=== PATIENT | male | born 1945 | race Caucasian/White ===

== ENCOUNTER 2016-07-10 15:32 | Inpatient (IN) | payer OTHER, MEDICARE, MEDICAID ==
[~2016-07-10] VITALS: Ht 182.9 cm; Wt 128.8 kg
[2016-07-10 15:35] VITALS: BP 123/66; PULSE 107; RESP 22; TEMP 98.7; O2SAT 92
--- NOTE | 2016-07-10 15:35 | NUR ---
Pt BIB BLS and triaged in hallway. Pt c/o generalized weakness x 1 day. Denies falling, denies head trauma or LOC. No focal neurodeficits noted. Pt report given to SHELLY Gallegos and Dr. Crespo. Addendum: 07/10/16 at 1632 by ALESSIA Pt arrives with O2 at @ 2LPM/NC per ambulance r/t SPO2 in low 90's. No respiratory distress noted. BBS clear, even and non-labored.
--- NOTE | 2016-07-10 16:00 | NUR ---
Pt placed to ER bed 05.
--- NOTE | 2016-07-10 16:05 | NUR ---
Pt brought by ambulance, A&Ox4, pt c/o generalized weakness and SOB, skin pink and diaphoretic, cap refill <3, VSS, cap refill <3, pt denies pain at this time.able to follows commands.
--- NOTE | 2016-07-10 16:05 | NUR ---
Dr Crespo at bedside examining patient
[2016-07-10] MEDS ORDERED: PIPERACILLIN/TAZO 3.38 GM in D5W 50 ML IV ONE (16:15)
[2016-07-10] MEDS ORDERED: NS 1000 ML BAG IV ONE (16:15)
[2016-07-10] MEDS ORDERED: ACETAMINOPHEN 325 MG TABLET PO ONE (16:30)
[2016-07-10 16:31] LABS: HEMATOCRIT 45.7 % (36-54); MEAN CORPUSCULAR HEMOGLOBIN 29 pg (27-31); MEAN CORPUSCULAR HGB CONC 35 % (32-36); MEAN CORPUSCULAR VOLUME 83 fL (79.0-98.0); PLATELET COUNT (AUTO) 178 K/uL (130-430); RED BLOOD CELL COUNT(AUTO) 5.53 MIL/uL (4.2-6.2); RED CELL DISTRIBUTION WIDTH 13.5 % (9.0-15.0); WHITE BLOOD COUNT (AUTO) 24.8 K/uL (4.8-10.8)
[2016-07-10] MEDS ORDERED: PIPERACILLIN/TAZOBACTAM 3.375 GM/VIAL (ZOSYN) IV ONE ×2 (16:32→23:22)
[2016-07-10 16:35] LABS: ABG TOTAL HEMOGLOBIN 16.5 G/dL (12.0-18.0); BLOOD GAS BASE EXCESS -2.1 mmol/L (-3.0-3.0); BLOOD GAS COHb% 0.4 % (0.5-1.5); BLOOD GAS HHB 7.1 % (0.0-6.0); BLOOD GAS PH 7.492 (7.350-7.450); BLOOD O2Hb% 92.3 % (94.0-97.0)
[2016-07-10 16:44] LABS: ANION GAP 9 (5-15); CALCIUM 8.9 mg/dL (8.4-11.0); CHLORIDE 104 mmol/L (98-107); GLUCOSE 135 mg/dL (70-99); POTASSIUM 3.9 mmol/L (3.5-5.1); SODIUM SERUM 136 mmol/L (136-145); UREA NITROGEN, BLOOD 34 mg/dL (8-21)
[2016-07-10 16:48] LABS: ALANINE AMINOTRANSFERASE 32 U/L (12-78); ALBUMIN 3.6 g/dL (3.4-4.8); ASPARTATE AMINOTRANSFERASE 20 U/L (10-37); TOTAL BILIRUBIN 2.3 mg/dL (0.0-1.0); TOTAL PROTEIN, SERUM 6.6 g/dL (6.4-8.3)
[2016-07-10 16:57] LABS: INR 1.2 (0.80-1.20); PROTHROMBIN TIME 12.6 SECS (9.5-12.5)
[2016-07-10 17:13] LABS: BAND % (MANUAL) 7 % (0-6); BASOPHILS % (MANUAL) 0 % (0-2); EOSINOPHILS % (MANUAL) 0 % (0-7); LYMPHOCYTES % (MANUAL) 20 % (20-46); MONOCYTES % (MANUAL) 4 % (0-11)
[2016-07-10] MEDS ORDERED: NACL 0.9% 1,000 ML IV ONE ×2 (17:15)
[2016-07-10 18:36] LABS: BILIRUBIN,URINE NEGATIVE (NEGATIVE); BLOOD, URINE NEGATIVE (NEGATIVE); CLARITY/URINE CLEAR (CLEAR); COLOR,URINE YELLOW (YELLOW); GLUCOSE,URINE NEGATIVE (NEGATIVE); KETONES,URINE TRACE (NEGATIVE); LEUKOCYTE ESTERASE ,URINE TRACE (NEGATIVE); NITRITE, URINE NEGATIVE (NEGATIVE); PROTEIN URINE TRACE (NEGATIVE); UROBILINOGEN,URINE 0.2 (0.2-1.0)
[2016-07-10 18:51] LABS: BACTERIA,URINE RARE /HPF (None Seen); RBC,URINE 0-3 /HPF (0-3)
--- NOTE | 2016-07-10 19:33 | NUR ---
Pt A&Ox4, stable, follows commands, diaphoretic, VSS.
--- NOTE | 2016-07-10 19:35 | NUR ---
Pt states he does not take prescribed medications at home , per pt only takes vitamins.
[2016-07-10] MEDS ORDERED: ACETAMINOPHEN 500 MG TABLET PO PRN (19:45)
[2016-07-10] MEDS ORDERED: IPRATROPIUM/ALBUTEROL SULFATE 3 ML AMPUL.NEB INH PRN (19:45)
[2016-07-10] MEDS ORDERED: ONDANSETRON HCL 4 MG/2 ML VIAL IVP PRN (19:45)
[2016-07-10] MEDS ORDERED: VANCOMYCIN HCL 1,000 MG in NS 250 ML IV ONE (19:45)
[2016-07-10] MEDS ORDERED: D5/0.45 NS 1,000 ML IV ONE (19:45)
--- NOTE | 2016-07-10 20:10 | NUR ---
Patient will be admitted to care of Dr Beth . Admitted to Tele unit. Will go to room 100A . Belongings list completed. Summary report printed. Report given to admitting nurse
--- NOTE | 2016-07-10 20:17 | NUR ---
ADMISSION NOTE Received patient from ER via gurney. Patient admitted with diagnosis of sepsis/pneumonia/dehydration. Patient is awake, alert, oriented X4. Patient oriented to hospital room, call light, toileting, pain management and safety-teach back done. Patient informed that Yazmin BRAVO will be his nurse and that their room number is 100A. Personal belongings checked and Belongings List documented. Call light within reach.
[2016-07-10 20:20] VITALS: BP 108/62; PULSE 78; RESP 20; TEMP 98.1; O2SAT 93
--- NOTE | 2016-07-10 20:20 | NUR ---
INITIAL NOTE PT. RECEIVED AAOX4, VERY FATIGUED. NO S/S OF SOB OR DISTRESS AT THIS TIME. PT. DENIES ANY PAIN. VSS, SATING WELL ON 2L NC. SINUS RHYTHM ON THE MONITOR. IV ACCESS NOTED TO RAC, #20 AND LAC, #20. NO REDNESS OR SWELLING AT THE SITE. WILL START PT. ON IV FLUIDS ORDERED. LEFT LEG HAS SOME REDNESS AND +2 PITTING EDEMA. PT. ENCOURAGED TO STAY IN BED, AND CALL FOR ASSISTANCE IF NEEDED TO DUE WEAKNESS, VERBALIZES UNDERSTANDING. PLAN OF CARE DISCUSSED WITH THE PT. VERBALIZES UNDERSTANDING, HOWEVER HE IS DOZING IN AND OUT OF SLEEP. WILL NEED TO REINFORCE. SAFETY AND FALL PRECAUTIONS IN PLACE. CALL LIGHT IN REACH, BED ALARM ON.
--- NOTE | 2016-07-10 21:59 | NUR ---
ROUNDS DR. LOPEZ IN TO SEE THE PT. MADE AWARE OF PT. FATIGUE. HAS ORDERED FOLLOW UP ABG TO BE DONE IN AM ALONG WITH A URINE TOXICOLOGY SCREEN.
--- NOTE | 2016-07-10 22:00 | NUR ---
ROUNDS PT. RESTING IN BED WITH EYES CLOSED. CHEST RISE AND FALL NOTED. DIFFICULT TO AWAKEN. ON 2L NC. IV FLUIDS ARE INFUSING WELL. NO INFILTRATION NOTED. WILL CONTINUE TO MONITOR CLOSELY. SAFETY AND FALL PRECAUTIONS IN PLACE. CALL LIGHT IN REACH, BED ALARM ON.
[2016-07-10 22:15] VITALS: BP 108/62; PULSE 78
[2016-07-10] MEDS ORDERED: VANCOMYCIN HCL 1000 MG/VIAL IV ONE (23:22)
[2016-07-10] MEDS ORDERED: PANTOPRAZOLE SODIUM 40 MG/VIAL (PROTONIX) ONE (23:28)
[2016-07-10 23:52] VITALS: BP 122/65; PULSE 89; RESP 18; TEMP 98.2; O2SAT 95
[2016-07-11] MEDS: PANTOPRAZOLE SODIUM 40 MG/VIAL (PROTONIX) IVP SCH ×2 (00:06→08:41)
[2016-07-11] MEDS: PIPERACILLIN/TAZO 3.375/DEX-IS 50 ML IV SCH ×5 (00:09→23:34)
--- NOTE | 2016-07-11 00:30 | NUR ---
ROUNDS PT. RESTING IN BED. MORE TALKATIVE AND ALERT AT THIS TIME. IV ANTIBIOTICS INFUSING WELL WITH NO ADVERSE REACTIONS NOTED. 400 CC OF NEL URINE EMPTIED FROM URINAL. ASSISTED PT. TO A COMFORTABLE POSITION. PT. SON CALLED, WITH PT. VERBAL OKAY, LET SON KNOW HE WAS STABLE. TOLD SON I COULD NOT GIVE DETAILS OVER THE PHONE, VERBALIZED UNDERSTANDING. PT. ENCOURAGED TO CALL FOR ASSISTANCE AND NOT TO GET UP WITHOUT HELP. VERBALIZES UNDERSTANDING. WILL CONTINUE TO MONITOR. SAFETY AND FALL PRECAUTIONS IN PLACE. CALL LIGHT IN REACH, BED ALARM ON.
--- NOTE | 2016-07-11 00:34 | NUR ---
RADIOLOGY CALL SPOKE WITH RADIOLOGY, TO DO 1 VIEW X RAY TOMORROW DUE TO PT. WEAKNESS AND NOT ABLE TO STAND ON OWN.SAID HE WILL FOLLOW UP WITH MD LATER TOMORROW IF HE WOULD LIKE A 2 VIEW.
--- NOTE | 2016-07-11 02:00 | NUR ---
ROUNDS PT. RESTING IN BED WITH EYES CLOSED. CHEST RISE AND FALL NOTED. NO S/S OF SOB OR DISTRESS. NO FACIAL GRIMACING INDICATING PAIN. IV FLUIDS INFUSING WELL ORDERED. WILL CONTINUE TO MONITOR FOR ANY CHANGES. SAFETY AND FALL PRECAUTIONS IN PLACE. CALL LIGHT IN REACH.
[2016-07-11 03:50] VITALS: BP 110/63; PULSE 79; RESP 18; TEMP 98.6; O2SAT 96
--- NOTE | 2016-07-11 06:55 | NUR ---
closing note pt. resting in bed, no s/s of sob or distress noted. pt. denies pain at this time. iv fluids infusing well. all necessary needs were met. safety and fall precautions were maintained. will endorse care to am nurse. call light in reach.
[2016-07-11 07:28] LABS: ABG TOTAL HEMOGLOBIN 14.9 G/dL (12.0-18.0); BLOOD GAS BASE EXCESS -1.9 mmol/L (-3.0-3.0); BLOOD GAS HHB 4.2 % (0.0-6.0); BLOOD GAS PH 7.452 (7.350-7.450); BLOOD O2Hb% 94.3 % (94.0-97.0)
[2016-07-11 08:00] VITALS: BP 121/63; PULSE 85; RESP 18; TEMP 98.3; O2SAT 95
--- NOTE | 2016-07-11 08:00 | NUR ---
NOTES: RECEIVED PT IN BED, PT AOX, DENIES PAIN. NO SOB, IV ON L ARM WITH GOOD BLOOD RETURN, IV INFUSING WELL. VITAL WNL, AFEBRILE, CALLLIGHT W/IN REACH. TOLD TO CALL FOR ASSIST.
[2016-07-11] MEDS: LACTOBACILLUS RHAMNOSUS GG 1 CAP CAPSULE PO SCH ×2 (08:42→21:38)
[2016-07-11 09:04] LABS: BASOPHILS # (AUTO) 0.1 K/uL (0.0-0.2); BASOPHILS % (AUTO) 0.5 % (0.0-2.0); EOSINOPHILS % (AUTO) 0.1 % (0.0-4.0); HEMATOCRIT 40.3 % (36-54); HEMOGLOBIN 14.4 g/dL (14.0-18.0); LYMPHOCYTES # (AUTO) 2.3 K/uL (1.0-5.5); LYMPHOCYTES % (AUTO) 15.8 % (20.5-51.5); MEAN CORPUSCULAR HEMOGLOBIN 30 pg (27-31); MEAN CORPUSCULAR HGB CONC 36 % (32-36); MEAN CORPUSCULAR VOLUME 84 fL (79.0-98.0); MONOCYTES # (AUTO) 0.3 K/uL (0.0-1.0); MONOCYTES % (AUTO) 2.4 % (1.7-9.3); NEUTROPHILS # (AUTO) 11.7 K/uL (1.8-7.7); NEUTROPHILS % (AUTO) 81.2 % (40.0-70.0); PLATELET COUNT (AUTO) 127 K/uL (130-430); RED BLOOD CELL COUNT(AUTO) 4.83 MIL/uL (4.2-6.2); RED CELL DISTRIBUTION WIDTH 13.2 % (9.0-15.0); WHITE BLOOD COUNT (AUTO) 14.4 K/uL (4.8-10.8)
[2016-07-11 09:18] LABS: ANION GAP 7 (5-15); CHLORIDE 107 mmol/L (98-107); POTASSIUM 3.7 mmol/L (3.5-5.1); SODIUM SERUM 136 mmol/L (136-145)
[2016-07-11 09:19] LABS: CALCIUM 8.1 mg/dL (8.4-11.0); CREATININE 1.48 mg/dL (0.55-1.30); GLUCOSE 150 mg/dL (70-99); PHOSPHORUS 1.9 mg/dL (2.7-4.5); UREA NITROGEN, BLOOD 24 mg/dL (8-21)
--- NOTE | 2016-07-11 10:00 | NUR ---
SEEN PT IN BED, TALKIN ON THE PHONE WITH FAMILY, IV RUNNING WELL. NO C/O PAIN. NO SOB.
--- NOTE | 2016-07-11 11:05 | NUR ---
NOTES; DR CAMPUZANO IS HERE AND MADE AWARE OF THE PHOSPORUS LEVEL OF 1.9. NO NEW ORDER GIVEN.
[2016-07-11 12:00] VITALS: BP 106/49; PULSE 72; RESP 18; TEMP 98; O2SAT 96
--- NOTE | 2016-07-11 12:00 | NUR ---
NOTE: PATIENT IS RESTING COMFORTABLY IN BED. NO S/S OF DISTRESS OR SOB. PATIENT IS ALERT AND ORIENTED, ABLE TO EXPRESS NEEDS, AND ASK FOR ASSISTANCE. FAMILY AT BEDSIDE. CALL LIGHT IN REACH, BED IN LOWEST POSITION, AND WILL CONTINUE TO MONITOR.
[2016-07-11 12:21] LABS: BARBITURATE, URINE NEGATIVE (NEG <=200); BENZODIAZEPINE, URINE NEGATIVE (NEG <=150); CANNABINOID, URINE NEGATIVE (NEG <=50); COCAINE, URINE NEGATIVE (NEG <=150); METHAMPHETAMINES SCREEN,URINE NEGATIVE (NEG <=500); OPIATE, URINE NEGATIVE (NEG <=100); PHENCYCLIDINE SCREEN,URINE NEGATIVE (NEG <=25); UR TRICYCLIC ANTIDEPRESSANTS NEGATIVE (NEG <=300); URINE AMPHETAMINE NEGATIVE (NEG <=500); URINE METHADONE NEGATIVE (NEG <=200); URINE OXYCODONE SCREEN NEGATIVE (NEG <=100); URINE PROPOXYPHENE SCREEN NEGATIVE (NEG <=300)
[2016-07-11] MEDS: VANCOMYCIN HCL 1,250 MG in NS 250 ML IV SCH (12:39)
--- NOTE | 2016-07-11 14:00 | NUR ---
PT IN BED, RESTING IN BED, FAMILY AT BEDSIDE, NO C/O PAIN. NO SOB. NO DISTRESS. INFORMED PT THAT NO OTHER TEST WAS SCHEDULE FOR HIM THIS PM. CALLIGHT IN REACH, BED IN LOW POSITION. INSTRUCTED TO CALL FOR ASSIST.
[2016-07-11 16:00] VITALS: BP 116/60; PULSE 87; RESP 18; TEMP 98.9; O2SAT 95
--- NOTE | 2016-07-11 16:00 | NUR ---
NOTES; PT IS ALERT AND ORIENTED, DENIES PAIN, NO DISTRESS, NO SOB. PT RESTING COMFORTABLE IN BED. CALLIGHT IN REACH AND BED IN LOW POSITION. SPOKE WITH EARLIER PT'S FAMILY BOY MARISCAL, AND SHE IS REQUESTING TO CALL MD FOR URINE CULTRURE. TOLD HER THAT I WILL CALL MD AND TRY TO GET AN ORDER.
--- NOTE | 2016-07-11 18:26 | NUR ---
CLOSING NOTES, PT IN BED, PT AWAKEN TO HAVE DINNER, ANTIBIOTICS GIVEN. NO C/O PAIN, NO DISTRESS. BED AT LOW POSITION. CALLIGHT W/IN REACH. PAGED DR CAMPUZANO FOR FAMILY REQUEST FOR URINE CULTURE. WILL ENDORSE TO NIGHT RN.
[2016-07-11 19:30] VITALS: BP 118/61; PULSE 81; RESP 16; TEMP 98.5; O2SAT 95
--- NOTE | 2016-07-11 19:30 | NUR ---
notes received the pt from the day nurse.pt a/a/ox4 no c/o pain or discomfort.lt leg is red and warm to touch.monitor in place and shows SR,iv intact to both rt and lt ac,no redness or swelling noted.pt refusing scd.call light within reach safety measures in progress.continue to monitor.
--- NOTE | 2016-07-11 21:50 | NUR ---
notes pt was seen by dr parkinson,urinal emptied of clear wesley urine 600cc.continue to monitor.
--- NOTE | 2016-07-11 23:21 | NUR ---
notes pt resting with eyes closed,call light within reach continue to monitor.
[2016-07-11 23:47] VITALS: BP 124/67; PULSE 85; RESP 18; TEMP 99; O2SAT 93
[2016-07-12] MEDS: VANCOMYCIN HCL 1,250 MG in NS 250 ML IV SCH ×2 (00:08→12:48)
--- NOTE | 2016-07-12 01:30 | NUR ---
notes pt sleeping call light within reach.continue to monitor.
--- NOTE | 2016-07-12 03:17 | NUR ---
notes pt sleeping ,no distress noted.continue to monitor.
[2016-07-12 03:43] VITALS: BP 130/67; PULSE 83; RESP 18; TEMP 97.4; O2SAT 97
--- NOTE | 2016-07-12 05:08 | NUR ---
notes pt sleeping,no distress noted.continue to monitor.
--- NOTE | 2016-07-12 06:25 | NUR ---
closing notes. pt resting with eyes closed.will endorse the care of the pt to the day nurse.
[2016-07-12] MEDS: PIPERACILLIN/TAZO 3.375/DEX-IS 50 ML IV SCH ×4 (06:57→23:50)
[2016-07-12 07:01] LABS: BASOPHILS % (AUTO) 0.3 % (0.0-2.0); EOSINOPHILS # (AUTO) 0.2 K/uL (0.0-0.4); EOSINOPHILS % (AUTO) 1.3 % (0.0-4.0); HEMATOCRIT 41.5 % (36-54); HEMOGLOBIN 14.4 g/dL (14.0-18.0); LYMPHOCYTES # (AUTO) 2.5 K/uL (1.0-5.5); LYMPHOCYTES % (AUTO) 21.6 % (20.5-51.5); MEAN CORPUSCULAR HEMOGLOBIN 29 pg (27-31); MEAN CORPUSCULAR HGB CONC 35 % (32-36); MEAN CORPUSCULAR VOLUME 85 fL (79.0-98.0); MONOCYTES # (AUTO) 0.6 K/uL (0.0-1.0); MONOCYTES % (AUTO) 5.3 % (1.7-9.3); NEUTROPHILS # (AUTO) 8.3 K/uL (1.8-7.7); NEUTROPHILS % (AUTO) 71.5 % (40.0-70.0); PLATELET COUNT (AUTO) 130 K/uL (130-430); RED BLOOD CELL COUNT(AUTO) 4.89 MIL/uL (4.2-6.2); RED CELL DISTRIBUTION WIDTH 13.3 % (9.0-15.0); WHITE BLOOD COUNT (AUTO) 11.6 K/uL (4.8-10.8)
--- NOTE | 2016-07-12 07:20 | NUR ---
AM ROUNDS Pt lying with eyes closed...A/O x3, Denies pain at tihis time...IVF infusing well to LAC...LLE with edema, redness and warm to touch...Pt makes needs known...Call light/phone w/in reach...Will cont to monitor
[2016-07-12 07:46] LABS: ANION GAP 10 (5-15); CALCIUM 8.4 mg/dL (8.4-11.0); CHLORIDE 106 mmol/L (98-107); CREATININE 1.38 mg/dL (0.55-1.30); GLUCOSE 105 mg/dL (70-99); POTASSIUM 3.9 mmol/L (3.5-5.1); SODIUM SERUM 140 mmol/L (136-145); UREA NITROGEN, BLOOD 15 mg/dL (8-21)
[2016-07-12 08:05] LABS: PHOSPHORUS 2.5 mg/dL (2.7-4.5)
[2016-07-12 08:31] VITALS: BP 100/59; PULSE 71; RESP 22; TEMP 98; O2SAT 94
--- NOTE | 2016-07-12 09:09 | NUR ---
Nutrition Update Christiano Scale 14 noted. Pt admitted for sepsis, pneumonia, severe dehydration. Diet: regular BMI: 38.7 kg/m2 RD to follow per nutrition care standards.
[2016-07-12] MEDS: LACTOBACILLUS RHAMNOSUS GG 1 CAP CAPSULE PO SCH ×2 (09:14→22:31)
--- NOTE | 2016-07-12 09:22 | NUR ---
ROUNDS PT STABLE...SITTING UP IN BED ON CELL PHONE....WILL CONT TO MONITR
[2016-07-12] MEDS: PANTOPRAZOLE SODIUM 40 MG/VIAL (PROTONIX) IVP SCH (09:30)
--- NOTE | 2016-07-12 11:03 | NUR ---
TRANSPORTED TO CT VIA WC
[2016-07-12 11:22] VITALS: BP 114/57; PULSE 68; RESP 16; TEMP 96.7; O2SAT 97
--- NOTE | 2016-07-12 12:00 | NUR ---
INCENTIVE SPIROMETER INSTRUCTED PT ON I/S...PT DEMONSTRATED AND REACHED 2400ml...INSTRUCTED PT TO USE 10X/HR...PT UNDERSTOOD
[2016-07-12 13:30] VITALS: Ht 182.9 cm; Wt 128.8 kg
--- NOTE | 2016-07-12 13:45 | NUR ---
AMBULATING IN HALLWAY W/FWW...GAIT. STEADY
[2016-07-12 15:26] VITALS: BP 125/66; PULSE 81; RESP 19; TEMP 98.1; O2SAT 96
--- NOTE | 2016-07-12 17:43 | NUR ---
BELONGINGS LIST COMPLETED PT HAD LARGE AMOUNT OF CARNEY IN HIS WALLET..TOTAL OF $[id number]...CHARGE NURSE AND I COUNTED IN FRONT OF PT..WALLET WITH EVERYTHING IN IT WILL BE PLACED IN SAFE....42x$100, 2x$20, 6x$1
--- NOTE | 2016-07-12 18:58 | NUR ---
ROUNDS PT REMAINS STABLE....NO CHANGES..PT COMFORTABLE...WILL CONT TO MONITOR
--- NOTE | 2016-07-12 19:35 | NUR ---
OPENING NOTES PATIENT IS A/OX4. NO SIGNS OF DISTRESS. BREATHING IS NON LABORED. NO COMPLAINTS OF PAIN. VITAL SIGNS ARE STABLE. PATIENT INSTRUCTED TO CALL FOR ASSISTANCE. CALL LIGHT IS WITHIN REACH. WILL CONTINUE TO MONITOR.
--- NOTE | 2016-07-12 19:36 | NUR ---
PATIENT REFUSED SCD. PATIENT WAS EDUCATED ON THE IMPORTANCE OF SCD. PATIENT REFUSED.
[2016-07-12 19:40] VITALS: BP 119/61; PULSE 76; RESP 17; TEMP 98.7; O2SAT 94
--- NOTE | 2016-07-12 21:56 | NUR ---
ROUNDS PATIENT IS IN BED RESTING AND WATCHING TV. NO COMPLAINTS OF PAIN. BREATHING IS NON LABORED. WILL CONTINUE TO MONITOR.
--- NOTE | 2016-07-12 22:35 | NUR ---
PATIENT CARNEY MONEY SENT TO SAFE PATIENT STATED THAT HIS CARNEY MONEY WAS SENT TO THE SAFE.
[2016-07-13] VITALS (8 sets, daily range): BP systolic 118–148; BP diastolic 58–84; PULSE 63–79; RESP 15–24; TEMP 96.4–99.2; O2SAT 95–98
[2016-07-13] MEDS: VANCOMYCIN HCL 1,250 MG in NS 250 ML IV SCH ×3 (00:41→22:19)
--- NOTE | 2016-07-13 00:50 | NUR ---
ROUNDS PATIENT WAS GIVEN ICE WATER. PATIENT IS RESTING COMFORTABLY IN BED WATCHING TV. WILL CONTINUE TO MONITOR.
--- NOTE | 2016-07-13 02:40 | NUR ---
ROUNDS PATIENT IS IN BED SLEEPING. NO SIGNS OF DISTRESS. BREATHING IS NON LABORED. NO COMPLAINTS OF PAIN. WILL CONTINUE TO MONITOR.
--- NOTE | 2016-07-13 04:33 | NUR ---
ROUNDS PATIENT IS IN BED SLEEPING. NO SIGNS OF DISTRESS. BREATHING IS NON LABORED. WILL CONTINUE TO MONITOR. CALL LIGHT IS WITHIN REACH. SAFETY MEASURES ARE IN PLACE.
[2016-07-13] MEDS: PIPERACILLIN/TAZO 3.375/DEX-IS 50 ML IV SCH ×3 (05:16→17:24)
--- NOTE | 2016-07-13 06:40 | NUR ---
CLOSING NOTES PATIENT IS IN BED SLEEPING. NO SIGNS OF DISTRESS. BREATHING IS NON LABORED. IV IS PATENT AND SHOWS NO SIGNS OF COMPLICATIONS. SAFETY MEASURES ARE IN PLACE. WILL ENDORSE ALL CARE TO THE MORNING NURSE.
--- NOTE | 2016-07-13 07:25 | NUR ---
AM ROUNDS PATIENT RESTING IN BED, AWAKE, ALERT AND ORIENTED X4, DENIES PAIN, ASSESSMENT COMPLETE, SOME EDEMA NOTED ON THE LEFT LOWER LEG, NON PITTING, EDUCATED THE PATIENT LEGAL EXAMINER LIGHT SYSTEM AND TO CALL FOR ANY ASSISTANCE, PATIENT VERBALIZED UNDERSTANDING AT THIS TIME, NO OTHER NEEDS AT THIS TIME, BED IN LOWEST, POSITION, THREE SIDE RAILS UP, BED ALARM ON, CALL LIGHT PLACED IN THE PATIENT'S HAND.
[2016-07-13] MEDS: PANTOPRAZOLE SODIUM 40 MG/VIAL (PROTONIX) IVP SCH (08:07)
[2016-07-13] MEDS: LACTOBACILLUS RHAMNOSUS GG 1 CAP CAPSULE PO SCH ×2 (08:07→22:17)
--- NOTE | 2016-07-13 08:10 | NUR ---
RN ROUNDS PATIENT RESTING IN BED, AWAKE, DENIES PAIN, EDUCATED ON MEDICATIONS AND POTENTIAL SIDE EFFECTS, PATIENT VERBALIZED UNDERSTANDING AND TOLERATED WELL, NO OTHER NEEDS AT THIS TIME, BED IN LOWEST, POSITION, THREE SIDE RAILS UP, BED ALARM ON, CALL LIGHT PLACED IN THE PATIENT'S HAND.
--- NOTE | 2016-07-13 10:03 | NUR ---
CONSULT ID SEPSIS DR CHING [phone] S/W [facility] OFFICE @ [id number]
--- NOTE | 2016-07-13 10:30 | NUR ---
PHYSICAL THERAPY PATIENT HAS A STEADY GAIT, INFORMED BY JESUS WINN THAT PATIENT DID WELL WITH CLIMBING STAIRS AT THIS TIME.
--- NOTE | 2016-07-13 10:49 | NUR ---
RN ROUNDS PATIENT ASKING TO BE DISCONNECTED FROM IV SO THAT HE CAN WALK AROUND THE UNIT, PATIENT HAS STEADY GAIT, STUDENT NURSE ASSISTING THE PATIENT, DR CAMPUZANO PUT IN REQUEST FOR PHYSICAL THERAPY TO SEE THE PATIENT, NOTIFIED PHYSICAL THERAPY AND INFORMED THAT THE PATIENT WOULD LIKE TO PRACTICE STAIR TRAINING, WILL FOLLOW UP.
--- NOTE | 2016-07-13 11:40 | NUR ---
RN ROUNDS PATIENT SITTING IN A CHAIR AT THE BED SIDE, DENIES PAIN, DENIES SHORTNESS OF BREATH, EDUCATED ON IV ANTIBIOTIC MEDICATION AND POTENTIAL SIDE EFFECTS, PATIENT VERBALIZED UNDERSTANDING, IV SITE IS PATENT WITH NO SIGNS OF INFILTRATION AT THIS TIME, VISITOR AT THE BEDSIDE, BED IN LOWEST POSITION, FALL PRECAUTIONS IN PLACE.
--- NOTE | 2016-07-13 14:30 | NUR ---
RN ROUNDS PATIENT RESTING IN BED, EYES CLOSED, BREATHING IS EVEN AND UNLABORED, NO SIGNS OF DISTRESS, WILL FOLLOW UP WITH VANCOMYCIN IV ONCE PATIENT IS AWAKE, BED IN LOWEST POSITION, THREE SIDE RAILS UP, BED ALARM ON, FALL AND ASPIRATION PRECAUTIONS IN PLACE, CALL LIGHT NEXT TO THE PATIENT'S HAND.
--- NOTE | 2016-07-13 17:24 | NUR ---
RN ROUNDS PATIENT RESTING IN BED, DENIES PAIN, EDUCATED ON MEDICATIONS AND POTENTIAL SIDE EFFECTS, PATIENT VERBALIZED UNDERSTANDING, IV ANTIBIOTIC HUNG AND INFUSING WELL, IV SITE IS PATENT, NO OTHER NEEDS AT THIS TIME, BED IN LOWEST POSITION, TWO SIDE RAILS UP, FALL AND ASPIRATION PRECAUTIONS IN PLACE, CALL LIGHT NEXT TO THE PATIENT'S HAND.
--- NOTE | 2016-07-13 18:17 | NUR ---
CLOSING NOTE PATIENT RESTING IN BED, DENIES PAIN, NO SIGNS OF DISTRESS, ALL NEEDS MET, WILL ENDORSE REPORT TO NOC SHIFT NURSE, BED IN LOWEST POSITION, TWO SIDE RAILS UP, FALL AND ASPIRATION PRECAUTIONS IN PLACE, CALL LIGHT NEXT TO THE PATIENT'S HAND.
--- NOTE | 2016-07-13 19:45 | NUR ---
OPENING NOTES PATIENT IS A/OX4. NO SIGNS OF DISTRESS. BREATHING IS NON LABORED. IV IS PATENT AND SHOWS NO SIGNS OF COMPLICATIONS. VITAL SIGNS ARE STABLE. PATIENT HAS NO COMPLAINTS OF PAIN. PATIENT INSTRUCTED TO CALL FOR ASSISTANCE. CALL LIGHT IS WITHIN REACH. WILL CONTINUE TO MONITOR.
--- NOTE | 2016-07-13 22:00 | NUR ---
ROUNDS PATIENT WAS GIVEN ICE WATER AND A BLANKET.
--- NOTE | 2016-07-13 22:30 | NUR ---
PATIENT FOOD IN PATIENT REFRIGERATOR PATIENT HAS TWO SLICES OF APPLE PIE AND 2 SLICES OF WATERMELON IN WHITE STATER BROTHERS BAG. PATIENT STICKER IS ON THE BAG.
--- NOTE | 2016-07-14 00:38 | NUR ---
ROUNDS PATIENT IS IN BED RESTING. NO SIGNS OF DISTRESS. BREATHING IS NON LABORED. SAFETY MEASURES ARE IN PLACE. WILL CONTINUE TO MONITOR.
[2016-07-14] MEDS: PIPERACILLIN/TAZO 3.375/DEX-IS 50 ML IV SCH ×3 (01:07→11:49)
--- NOTE | 2016-07-14 02:55 | NUR ---
ROUNDS PATIENT IS IN BED SLEEPING. NO SIGNS OF DISTRESS. BREATHING IS NON LABORED. SAFETY MEASURES ARE IN PLACE. CALL LIGHT IS WITHIN REACH. WILL CONTINUE TO MONITOR.
--- NOTE | 2016-07-14 05:50 | NUR ---
ROUNDS PATIENT IS IN BED RESTING. NO SIGNS OF DISTRESS. BREATHING IS NON LABORED. WILL CONTINUE TO MONITOR.
[2016-07-14] MEDS: VANCOMYCIN HCL 1,250 MG in NS 250 ML IV SCH ×2 (06:38→12:25)
--- NOTE | 2016-07-14 07:00 | NUR ---
CLOSING NOTES PATIENT IS IN BED SLEEPING. NO SIGNS OF DISTRESS. BREATHING IS NON LABORED. IV IS PATIENT AND SHOWS NO SIGNS OF COMPLICATIONS. SAFETY MEASURES ARE IN PLACE. WILL ENDORSE ALL CARE TO THE MORNING NURSE.
[2016-07-14 08:00] VITALS: BP 137/75; PULSE 71; RESP 18; TEMP 97.9; O2SAT 92
--- NOTE | 2016-07-14 08:00 | NUR ---
NOTE PT SITTING UP IN BED EATING HIS BREAKFAST. NO SOB/RESP DISTRESS OR PAIN/DISCOMFORT NOTED AT THIS TIME. LEFT FOOT WAS ELEVATED ON PILLOW AT THIS TIME. LEFT LEG EDEMATOUS AND HAS RED RASH AT THIS TIME. PT'S LEFT UNDER LID SWOLLEN AND RED AT THIS TIME. HAS IV IN LEFT AND RIGHT HANDS AT THIS TIME. CALL LIGHT WITHIN REACH.
--- NOTE | 2016-07-14 08:35 | NUR ---
NOTE DR CAMPUZANO ON THE FLOOR AND IN THE ROOM/ ASSESSMENT WAS COMPLETED AND VERBAL DISCHARGE ORDERS GIVEN.
[2016-07-14] MEDS: LACTOBACILLUS RHAMNOSUS GG 1 CAP CAPSULE PO SCH (08:44)
[2016-07-14] MEDS: PANTOPRAZOLE SODIUM 40 MG/VIAL (PROTONIX) IVP SCH (08:44)
[2016-07-14] MEDS: GENTAMICIN SULFATE 0.3% OPHT. 5 ML DROPS OP SCH ×2 (09:19→12:25)
--- NOTE | 2016-07-14 10:45 | NUR ---
NOTE DR KHAN ON THE FLOOR AND SAW PT AND ASSESSMENT WAS COMPLETED AT THIS TIME. ORDERS GIVEN AND PRESCRIPTION WRITTEN FOR DISCHARGE HOME.
--- NOTE | 2016-07-14 12:00 | NUR ---
NOTE PT SITTING IN BS CHAIR AND IVPB ANTIBIOTICS ARE INFUSING AT THIS TIME. PT AMBULATING IN ROOM WITH IV POLE WITH STEADY GAIT.
[2016-07-14 12:31] VITALS: BP 136/74; PULSE 77; RESP 18; TEMP 97.9; O2SAT 96
--- NOTE | 2016-07-14 15:00 | NUR ---
NOTE PT'S IVPB ANTIBIOTICS ARE COMPLTED AND IV IN RIGHT AND LEFT HAND WERE DC'D. CATHS ARE INTACT AND NO SWELLING/REDNESS/BLEEDING OR TENDERNESS AT BOTH SITES NOTED AT THIS TIME. PT WENT TO HAVE SHOWER AT THIS TIME. CALL LIGHT WITHIN REACH.
--- NOTE | 2016-07-14 16:15 | NUR ---
NOTE PT DRESSED IN STREET CLOTHES AND PACKED ALL HIS BELONGINGS AND DISCHARGE/TRANSITION OF CARE PAPERWORK/PRESCRIPTION. PT AMBULATED TO HEAD FIELD HOCKEY COACH/ADMITTING TO GET HIS MONEY THAT WAS IN THE SAFE. PT ALSO GOT HIS FOOD FROM THE PT'S REFRIGERATOR. PT CHECKED SIDE TABLE AND DRAWERS FOR BELONGINGS. NO NEEDS NOTED AT THIS TIME. CALL LIGHT WITHIN REACH.
--- NOTE | 2016-07-15 11:00 | NUR ---
Discharge Follow Up Phone Call MOTOR SCOOTER MECHANIC phoned patient, . Patient stated he was doing okay but moving slow this morning. Patient will attend his follow up appointment with Dr Sotelo on 07/21/16. Patient requested his prescriptions be faxed to his pharmacy. MOTOR SCOOTER MECHANIC stated that the copy of the Rx would need to be located. Phoned [facility] in medical records and obtained copy of the prescriptions. MOTOR SCOOTER MECHANIC phoned patient. Pharmacy is [facility] p [phone], f [phone]. MOTOR SCOOTER MECHANIC phoned [facility] and spoke with [place]. They will accept fax of copy of prescriptions. Patient will bring in originals at [facility]. MOTOR SCOOTER MECHANIC faxed Rx.
== END 2016-07-14 16:35 | disposition home or self-care (01) | DRG 871 ==
LOC: SED 15:32 → STU 19:41 → SMU 07-12 16:35
PROVIDERS: ADMIT Internal Medicine Hospice and Palliative Medicine; ATTEND Internal Medicine Hospice and Palliative Medicine
DX: A41.9 Sepsis, unspecified organism (principal); J18.9 Pneumonia, unspecified organism; J96.01 Acute respiratory failure with hypoxia; L03.116 Cellulitis of left lower limb; N17.9 Acute kidney failure, unspecified; E86.0 Dehydration; I10 Essential (primary) hypertension; R09.02 Hypoxemia; E66.9 Obesity, unspecified; Z68.38 Body mass index [BMI] 38.0-38.9, adult; Z90.79 Acquired absence of other genital organ(s)
CPT/HCPCS: 36415; 36600; 70450-TC; 71010; 80048; 80053; 80202-TC; 80307; 81000-TC; 82550-TC; 82803-TC; 83605; 83735-TC; 84100-TC; 84484; 85007; 85025; 85027; 85610-TC; 85730-TC; 87040-TC; 87086; 93005; 93306; 93970; 96361; 96365; 97116-GP; 99285; C9113; J2543; J3370; J7030; J7050; J7060